=== PATIENT | male | born 1990 | race Caucasian/White ===

== ENCOUNTER → 2016-05-20 | Outpatient (CLI) | payer SELFPAY ==
[~2016-05-20] MED LIST: NO HOME MEDICATIONS; NORCO 325 MG-7.1 TAB PO
== END ==
LOC: COL.RAD 05-18 08:15
DX: S83.511A Sprain of anterior cruciate ligament of right knee, initial encounter (principal); M89.8X6 Other specified disorders of bone, lower leg; S83.241A Other tear of medial meniscus, current injury, right knee, initial encounter; M25.461 Effusion, right knee

== ENCOUNTER → 2018-05-09 | Outpatient (REF) | LOC: ZLAB.WCH 08:30 | DX: Z01.89 Encounter for other specified special examinations (principal) ==